=== PATIENT | male | born 1960 | race American Indian/Alaskan Native ===

== ENCOUNTER 2018-06-13 06:45 | Day surgery (SDC) | payer OTHER ==
[~2018-06-13 06:45] MED LIST: ANCEF/STERILE WATER 2 GM/20 ML IV NR
[2018-06-13] MEDS ORDERED: NACL BACTERIOSTATIC INFILTRATI ONE (07:57)
[2018-06-13 08:27] LABS: Hematocrit 41.6 % (35.5-45.6); Hemoglobin 13.8 gm/dl (11.8-15.2); Mean Corpuscular HGB Conc 33 % (32-34); Mean Corpuscular Volume 83 fl (84-94); Platelet Count 164 K/mm3 (140-440); Red Cell Distribution Width 15.7 % (13.2-15.2)
[2018-06-13 08:41] LABS: Albumin 3.5 g/dL (3.9-5); BUN/Creatinine Ratio 17; Blood Urea Nitrogen 15 mg/dL (9-20); Calcium 8.5 mg/dL (8.4-10.2); Hemolysis Index 248
--- NOTE | 2018-06-13 08:52 | Anesthesia Day of Surgery ---
Anesthesia Day of Surgery - Day of Surgery Patient Examined: Yes Patient H&P Reviewed: Yes Patient is NPO: Yes
[2018-06-13] MEDS ORDERED: ZOFRAN IV PRN (08:53)
[2018-06-13] MEDS ORDERED: DILAUDID IV PRN (08:53)
--- NOTE | 2018-06-13 08:53 | Anesthesia Consultation ---
Anesthesia Consult and Med Hx Date of service: 06/13/18 - Airway Anesthetic Teeth Evaluation: Good ROM Head & Neck: Adequate Mental/Hyoid Distance: Adequate Mallampati Class: Class II Intubation Access Assessment: Probably Good - Pulmonary Exam CTA: Yes - Cardiac Exam Cardiac Exam: RRR - Pre-Operative Health Status ASA Pre-Surgery Classification: ASA3 Proposed Anesthetic Plan: General (lymphoma s/p chemo, Denies GERD) - Pulmonary Hx Smoking: No Hx Asthma: No SOB: Yes (SOB- RESOLVED) COPD: No Hx Pneumonia: Yes (2017- RESOLVED) Hx Sleep Apnea: No ([place] PRE SCREEN LOW RISK) - Cardiovascular System Hx Hypertension: No - Endocrine Hx End Stage Renal Disease: No - Hematic Hx Anemia: Yes (WITH CHEMO) - Other Systems Hx Cancer: Yes (2017-[place]MPH[place] - STILL RECEIVING MONTHLY CHEMO)
[2018-06-13] MEDS ORDERED: LACTATED RINGERS 1,000 ML IV SCH (09:00)
[2018-06-13] MEDS ORDERED: NACL 0.9% 1000 ML 1,000 ML IV SCH (09:00)
[2018-06-13] MEDS ORDERED: VERSED IV NR (09:00)
[2018-06-13 09:19] LABS: Alanine Aminotransferase 21 units/L (7-56)
[2018-06-13] MEDS ORDERED: SUBLIMAZE ONE (09:32)
[2018-06-13] MEDS ORDERED: DIPRIVAN 10 MG/ML IV ONE (09:32)
[2018-06-13] MEDS ORDERED: MARCAINE 0.25% INFILTRATI ONE ×2 (10:22→10:38)
[2018-06-13 10:29] LABS: Platelet Estimate Cons; RBC Morphology Normal; Total Cells Counted 100
[2018-06-13] MEDS ORDERED: NACL 0.9% IR ONE (10:38)
[2018-06-13] MEDS ORDERED: QUELICIN ONE (10:56)
[2018-06-13] MEDS ORDERED: XYLOCAINE MPF 2% ONE (10:56)
[2018-06-13] MEDS ORDERED: ZOFRAN ONE (10:57)
[2018-06-13] MEDS ORDERED: BLOXIVERZ ONE (10:57)
[2018-06-13] MEDS ORDERED: ZEMURON IV ONE (10:57)
[2018-06-13] MEDS ORDERED: NEO SYNEPHRINE/NS Syringe(OR USE) IV ONE (10:57)
[2018-06-13] MEDS ORDERED: ROBINUL ONE ×2 (10:57)
--- NOTE | 2018-06-13 10:59 | Short Stay Summary ---
Short Stay Documentation Date of service: 06/13/18 - Allergies and Medications Current Medications: Allergies No Known Allergies Allergy (Verified 06/06/18 17:46) Home Medications Medication Instructions Recorded Confirmed Last Taken Type Aspirin [Aspir-Low] 81 mg PO DAILY 06/06/18 06/13/18 06/06/18 History Active Medications Cefazolin Sodium (Ancef/Sterile Water 2 Gm/20 Ml) 2 gm IV PREOP NR Stop: 06/13/18 23:00 Hydromorphone HCl (Dilaudid) 0.5 mg IV Q10MIN PRN PRN Reason: Pain , Severe (7-10) Stop: 06/13/18 22:00 Lactated Ringer's (Lactated Ringers) 1,000 mls @ 75 mls/hr IV DIRECT YU Last Admin: 06/13/18 08:46 Dose: 75 mls/hr Sodium Chloride (Nacl 0.9% 1000 Ml) 1,000 mls @ 100 mls/hr IV DIRECT YU Midazolam HCl (Versed) 2 mg IV PREOP NR Stop: 06/13/18 23:59 Last Admin: 06/13/18 09:25 Dose: 2 mg Ondansetron HCl (Zofran) 4 mg IV ONCE PRN PRN Reason: Nausea And Vomiting Stop: 06/13/18 15:00 - Brief post op/procedure progress note Date of procedure: 06/13/18 Pre-op diagnosis: scrotal mass Post-op diagnosis: same Procedure: excision of left scrotal mass Anesthesia: ELIESERA Surgeon: BASHIR CORRAL Estimated blood loss: minimal Pathology: list (frozen section - inclusion cyst (Dr. Sandhu)) Specimen disposition: to lab Condition: stable - Hospital course Hospital course: bactrim & norco on chart - Disposition Condition at discharge: Stable Disposition: DC-01 TO HOME OR SELFCARE Short Stay Discharge Plan Follow up with: PRIMARY CARE,MD [Primary Care Provider] - 7 Days
--- NOTE | 2018-06-13 13:16 | Operative Report ---
PREOPERATIVE DIAGNOSIS: Left scrotal mass. POSTOPERATIVE DIAGNOSES: Left scrotal mass. PROCEDURE: Left excision of scrotal mass with frozen section. SURGEON: Kofi Vela MD ANESTHESIA: General. ESTIMATED BLOOD LOSS: Minimal. FLUIDS: Crystalloid. COMPLICATIONS: No complications. INDICATIONS: This patient is a 58-year-old gentleman presented to the office for evaluation of a left scrotal mass. The patient's primary care physician is Dr. Erlinda Moore. The patient has been seen by [facility] in [place], [place] for B-cell lymphoma. He has been treated with chemotherapy. Recently, he was found to have this scrotal mass over the last several months of unknown etiology, appeared to be attached to the testicle on repeat ultrasound. Examination was slightly tender. The patient was slightly uncomfortable and therefore not a good exam could be performed. Discussed options. The patient agreed to proceed with inguinal exploration, possible orchiectomy, possible excision of his mass. Risks, benefits, and complications were explained. DESCRIPTION OF PROCEDURE: The patient was taken to the operative suite, placed in a supine position. After adequate general anesthesia, the scrotum was prepped and draped in a sterile fashion. Examination under anesthesia the mass still appeared to be attached to the testicle. I made a left inguinal incision down to the external oblique fascia. I was able to manipulate the testicle up to the inguinal ring. At that point, it became clear that this was not attached to the testicle. At that point did a scrotal incision right over the mass and excised it. It was sent for frozen section. I was now able to examine the testicle. The tunica vaginalis was not violated. The testicle appeared to be normal as well as the epididymis. Frozen section from Dr. Duarte came back inclusion cyst. Adequate hemostasis was achieved. The dartos layer was then closed in the scrotal incision using 2-0 Vicryl in a running fashion. Skin was closed with 3-0 Vicryl in interrupted fashion. The Yolis's fascia was closed and the inguinal incision with 2-0 Vicryl in a running fashion and mary jo on the skin. The patient tolerated the procedure well. We are dressing and scrotal support was placed. He was extubated and taken to recovery room. He will go home on [employer]. [facility]# [id number] THOMAS/DAGMAR
[2018-06-13 16:39] VITALS: BP 113/73
== END 2018-06-13 12:47 | disposition home or self-care (01) ==
LOC: OR 06:45
PROVIDERS: ATTEND Urology
DX: L72.0 Epidermal cyst (principal); N50.89 Other specified disorders of the male genital organs; J18.9 Pneumonia, unspecified organism; M19.90 Unspecified osteoarthritis, unspecified site; C85.90 Non-Hodgkin lymphoma, unspecified, unspecified site; Z85.118 Personal history of other malignant neoplasm of bronchus and lung; Z79.82 Long term (current) use of aspirin; Z79.899 Other long term (current) drug therapy; Z86.2 Personal history of diseases of the blood and blood-forming organs and certain disorders involving the immune mechanism; Z82.49 Family history of ischemic heart disease and other diseases of the circulatory system; Z98.890 Other specified postprocedural states
CPT/HCPCS: 11423; 36415; 80053; 85007; 85025; 88305; 88331; J0330; J0690; J2250; J2370; J2405; J2704; J2710; J3010; J7120; 88309

== ENCOUNTER 2020-06-14 19:29 | Emergency (ER) | payer BC, OTHER ==
--- NOTE | 2020-06-14 20:17 | Cat Scan Report ---
CT BRAIN: 06/14/2020 INDICATION / CLINICAL INFORMATION: Stroke symptoms. Left-sided weakness COMPARISON: None available. FINDINGS: BRAIN/INTRACRANIAL STRUCTURES: Unenhanced CT images of the brain demonstrate no evidence of acute int racranial abnormality. Ventricles and sulci are normal in size and shape. There is no CT evidence of acute ischemic injury, hemorrhage, or mass. There are no abnormal extra-ax ial fluid collections. EXTRACRANIAL STRUCTURES: Unremarkable. IMPRESSION: No acute abnormality. Notification: Dr. Joaquin in the emergency department at [address] scans at this location are performed using dose reduction to ALARA by means of automated expos ure control. Signer Name: Benny Aaron MD Signed: 06/14/2020 8:13 PM Workstation Name: [id number]
[2020-06-14] MEDS ORDERED: SUCCINYLCHOLINE CHLORIDE 200 MG/10 ML INJ MDV ONE (20:31)
[2020-06-14] MEDS ORDERED: ETOMIDATE 20 MG/10 ML INJ IV ONE (20:31)
[2020-06-14] MEDS ORDERED: SODIUM CHLORIDE 0.9% 1000 ML 1,000 ML ONE (20:32)
[2020-06-14] MEDS ORDERED: SODIUM CHLORIDE 0.9% 500 ML 500 ML IV ONE (20:41)
[2020-06-14] MEDS ORDERED: ACETAMINOPHEN 650 MG RECT SUPP PR ONE (20:42)
[2020-06-14] MEDS ORDERED: MINERAL OIL/PETROLATUM, WHITE OPHTH OINT 3.5 GM OU PRN (20:44)
[2020-06-14] MEDS ORDERED: LIP THERAPY VASELINE TP PRN (20:44)
[2020-06-14 21:00] LABS: Hemoglobin 7.3 gm/dl (11.8-15.2); Mean Corpuscular HGB Conc 33 % (32-34); Mean Corpuscular Volume 83 fl (84-94); Red Blood Count 2.64 M/mm3 (3.65-5.03)
[2020-06-14] MEDS ORDERED: MIDAZOLAM 100 MG in SODIUM CHLORIDE 0.9% 80 ML IV SCH (21:00)
--- NOTE | 2020-06-14 21:01 | Emergency Department Report ---
HPI - General Chief Complaint: Neuro Symptoms/Deficit Time Seen by Provider: 06/14/20 19:35 - HPI HPI: This is a 60-year-old -Irish male presents to the emergency department via EMS from home after the patient was found unresponsive about 30 minutes prior to arrival. The patient has a history of lymphoma and apparently underwent some type of stem cell therapy today. The patient was found by EMS to be unresponsive with a left-sided gaze preference and a code stroke was called. Patient is a poor historian secondary to his current medical condition. I spoke to the patient's , Sherlyn, he says that the patient had a stem cell transplant done earlier today at [facility] through the blood and marrow transplant group. The patient was also admitted there as a short stay about 1 week ago for some type of treatment or transfusion. ED Past Medical Hx - Past Medical History Hx Hypertension: No Hx Congestive Heart Failure: No Hx Diabetes: No Hx Pulmonary Embolism: Yes Hx Arthritis: Yes Hx Asthma: No Hx COPD: No Hx HIV: No Additional medical history: No prior diagnosis of cardiovascular disease. No prior diagnosis of malignancy. - Social History Smoking Status: Never Smoker - Medications Home Medications: Home Medications Medication Instructions Recorded Confirmed Last Taken Type Aspirin [Aspir-Low] 81 mg PO DAILY 06/06/18 06/13/18 06/06/18 History ED Review of Systems ROS: Stated complaint: POSSIBLE STROKE Other details as noted in HPI Physical Exam - Physical Exam Physical Exam: GENERAL: Patient is ill-appearing and unresponsive. HENT: Normocephalic. Atraumatic. Patient has moist mucous membranes. EYES: Pupils equal reactive to light bilaterally. Patient has a right-sided gaze preference. NECK: Supple. Trachea is midline. CHEST/LUNGS: Coarse breath sounds. Patient has shallow respirations with bradypnea. There is respiratory distress noted. HEART/CARDIOVASCULAR: Regular. There is no tachycardia. ABDOMEN: Abdomen is soft. Patient has normal bowel sounds. SKIN: Skin is warm and dry. NEURO: Patient's eyes are open but otherwise he is nonverbal and nonresponsive. He does not follow any commands. MUSCULOSKELETAL: There is no obvious deformity. ED Course - Reevaluation(s) Reevaluation #1: 06/15/20 01:31 Lab Results 06/14/20 06/14/20 06/14/20 Range/Units 20:18 20:18 20:18 WBC 0.1 L* (4.5-11.0) K/mm3 RBC 2.64 L (3.65-5.03) M/mm3 Hgb 7.3 L (11.8-15.2) gm/dl Hct 22.0 L (35.5-45.6) % MCV 83 L (84-94) fl MCH 28 (28-32) pg MCHC 33 (32-34) % RDW 20.0 H (13.2-15.2) % Plt Count 16 L* (140-440) K/mm3 Lymph % (Auto) [employer] Bremer % (Auto) [employer] Add Manual Diff Complete Total Counted 14 Seg Neutrophils % [employer] Seg Neuts % (Manual) 0 L (40.0-70.0) % Band Neutrophils % 0 % Lymphocytes % (Manual) 78.6 H (13.4-35.0) % Reactive Lymphs % (Man) 0 % Monocytes % (Manual) 21.4 H (0.0-7.3) % Eosinophils % (Manual) 0 (0.0-4.3) % Basophils % (Manual) 0 (0.0-1.8) % Metamyelocytes % 0 % Myelocytes % 0 % Promyelocytes % 0 % Blast Cells % 0 % Nucleated RBC % 7.1 H (0.0-0.9) % Seg Neutrophils # Man 0.0 L (1.8-7.7) K/mm3 Band Neutrophils # 0.0 K/mm3 Lymphocytes # (Manual) 0.1 L (1.2-5.4) K/mm3 Abs React Lymphs (Man) 0.0 K/mm3 Monocytes # (Manual) 0.0 (0.0-0.8) K/mm3 Eosinophils # (Manual) 0.0 (0.0-0.4) K/mm3 Basophils # (Manual) 0.0 (0.0-0.1) K/mm3 Metamyelocytes # 0.0 K/mm3 Myelocytes # 0.0 K/mm3 Promyelocytes # 0.0 K/mm3 Blast Cells # 0.0 K/mm3 WBC Morphology Not Reportable Hypersegmented Neuts Not Reportable Hyposegmented Neuts Not Reportable Hypogranular Neuts Not Reportable Smudge Cells Not Reportable Toxic Granulation Not Reportable Toxic Vacuolation Not Reportable Dohle Bodies Not Reportable Pelger-Huet Anomaly Not Reportable Phoebe Rods Not Reportable Platelet Estimate Consistent w auto Clumped Platelets Not Reportable Plt Clumps, EDTA Not Reportable Large Platelets Not Reportable Giant Platelets Not Reportable Platelet Satelliting Not Reportable Plt Morphology Comment Not Reportable RBC Morphology Not Reportable Dimorphic RBCs Not Reportable Polychromasia Not Reportable Hypochromasia Not Reportable Poikilocytosis Not Reportable Anisocytosis Not Reportable Microcytosis Not Reportable Macrocytosis Not Reportable Spherocytes Not Reportable Pappenheimer Bodies Not Reportable Sickle Cells Not Reportable Target Cells Not Reportable Tear Drop Cells Rare Ovalocytes Rare Helmet Cells Not Reportable Tran-[place]ecaton[place] Bodies Not Reportable Leedey Rings Not Reportable Nidia Cells Not Reportable Bite Cells Not Reportable Crenated Cell Not Reportable Elliptocytes Not Reportable Acanthocytes (Spur) Not Reportable Rouleaux Not Reportable Hemoglobin C Crystals Not Reportable Schistocytes Not Reportable Malaria parasites Not Reportable Shakeel Bodies Not Reportable Hem Pathologist Commnt No PT 15.9 H (12.2-14.9) Sec. INR 1.24 H (0.87-1.13) APTT 25.5 (24.2-36.6) Sec. Thrombin Time 13.2 L (15.1-19.6) Sec. Sodium 134 L (137-145) mmol/L Potassium 3.6 (3.6-5.0) mmol/L Chloride 101.1 (98-107) mmol/L Carbon Dioxide 20 L (22-30) mmol/L Anion Gap 17 mmol/L BUN 16 (9-20) mg/dL Creatinine 1.1 (0.8-1.3) mg/dL Estimated GFR > 60 ml/min BUN/Creatinine Ratio 15 % Glucose 131 H (75-100) mg/dL POC Glucose (70-105) Lactic Acid (0.7-2.0) mmol/L Calcium 6.7 L (8.4-10.2) mg/dL Total Bilirubin 0.20 (0.1-1.2) mg/dL AST 28 (5-40) units/L ALT 12 (7-56) units/L Alkaline Phosphatase 53 (35-129) units/L Total Creatine Kinase 307 H (55-170) units/L CK-MB (CK-2) 1.5 (0.0-4.0) ng/mL CK-MB (CK-2) Rel Index 0.4 (0-4) Troponin T < 0.010 (0.00-0.029) ng/mL Total Protein 3.3 L (6.3-8.2) g/dL Albumin 1.6 L (3.9-5) g/dL Albumin/Globulin Ratio 0.9 % TSH (0.270-4.200) mlU/mL Urine Color (Yellow) Urine Turbidity (Clear) Urine pH (5.0-7.0) Ur Specific Strat[place] (1.003-1.030) Urine Protein (Negative) mg/dL Urine Glucose (UA) (Negative) mg/dL Urine Ketones (Negative) mg/dL Urine Blood (Negative) Urine Nitrite (Negative) Urine Bilirubin (Negative) Urine Urobilinogen (<2.0) mg/dL Ur Leukocyte Esterase (Negative) Urine WBC (Auto) (0.0-6.0) /HPF Urine RBC (Auto) (0.0-6.0) /HPF U Epithel Cells (Auto) (0-13.0) /HPF Urine Opiates Screen Urine Methadone Screen Ur Barbiturates Screen Ur Phencyclidine Scrn Ur Amphetamines Screen U Benzodiazepines Scrn Urine Cocaine Screen U Marijuana (THC) Screen Drugs of Abuse Note Plasma/Serum Alcohol (0-0.07) % 06/14/20 06/14/20 06/14/20 Range/Units 20:18 20:18 20:49 WBC (4.5-11.0) K/mm3 RBC (3.65-5.03) M/mm3 Hgb (11.8-15.2) gm/dl Hct (35.5-45.6) % MCV (84-94) fl MCH (28-32) pg MCHC (32-34) % RDW (13.2-15.2) % Plt Count (140-440) K/mm3 Lymph % (Auto) Bremer % (Auto) Add Manual Diff Total Counted Seg Neutrophils % Seg Neuts % (Manual) (40.0-70.0) % Band Neutrophils % % Lymphocytes % (Manual) (13.4-35.0) % Reactive Lymphs % (Man) % Monocytes % (Manual) (0.0-7.3) % Eosinophils % (Manual) (0.0-4.3) % Basophils % (Manual) (0.0-1.8) % Metamyelocytes % % Myelocytes % % Promyelocytes % % Blast Cells % % Nucleated RBC % (0.0-0.9) % Seg Neutrophils # Man (1.8-7.7) K/mm3 Band Neutrophils # K/mm3 Lymphocytes # (Manual) (1.2-5.4) K/mm3 Abs React Lymphs (Man) K/mm3 Monocytes # (Manual) (0.0-0.8) K/mm3 Eosinophils # (Manual) (0.0-0.4) K/mm3 Basophils # (Manual) (0.0-0.1) K/mm3 Metamyelocytes # K/mm3 Myelocytes # K/mm3 Promyelocytes # K/mm3 Blast Cells # K/mm3 WBC Morphology Hypersegmented Neuts Hyposegmented Neuts Hypogranular Neuts Smudge Cells Toxic Granulation Toxic Vacuolation Dohle Bodies Pelger-Huet Anomaly Phoebe Rods Platelet Estimate Clumped Platelets Plt Clumps, EDTA Large Platelets Giant Platelets Platelet Satelliting Plt Morphology Comment RBC Morphology Dimorphic RBCs Polychromasia Hypochromasia Poikilocytosis Anisocytosis Microcytosis Macrocytosis Spherocytes Pappenheimer Bodies Sickle Cells Target Cells Tear Drop Cells Ovalocytes Helmet Cells Tran-Pecatonica Bodies Leedey Rings Nidia Cells Bite Cells Crenated Cell Elliptocytes Acanthocytes (Spur) Rouleaux Hemoglobin C Crystals Schistocytes Malaria parasites Shakeel Bodies Hem Pathologist Commnt PT (12.2-14.9) Sec. INR (0.87-1.13) APTT (24.2-36.6) Sec. Thrombin Time (15.1-19.6) Sec. Sodium (137-145) mmol/L Potassium (3.6-5.0) mmol/L Chloride (98-107) mmol/L Carbon Dioxide (22-30) mmol/L Anion Gap mmol/L BUN (9-20) mg/dL Creatinine (0.8-1.3) mg/dL Estimated GFR ml/min BUN/Creatinine Ratio % Glucose (75-100) mg/dL POC Glucose 162 H (70-105) Lactic Acid (0.7-2.0) mmol/L Calcium (8.4-10.2) mg/dL Total Bilirubin (0.1-1.2) mg/dL AST (5-40) units/L ALT (7-56) units/L Alkaline Phosphatase (35-129) units/L Total Creatine Kinase (55-170) units/L CK-MB (CK-2) (0.0-4.0) ng/mL CK-MB (CK-2) Rel Index (0-4) Troponin T (0.00-0.029) ng/mL Total Protein (6.3-8.2) g/dL Albumin (3.9-5) g/dL Albumin/Globulin Ratio % TSH 1.270 (0.270-4.200) mlU/mL Urine Color (Yellow) Urine Turbidity (Clear) Urine pH (5.0-7.0) Ur Specific Stratton (1.003-1.030) Urine Protein (Negative) mg/dL Urine Glucose (UA) (Negative) mg/dL Urine Ketones (Negative) mg/dL Urine Blood (Negative) Urine Nitrite (Negative) Urine Bilirubin (Negative) Urine Urobilinogen (<2.0) mg/dL Ur Leukocyte Esterase (Negative) Urine WBC (Auto) (0.0-6.0) /HPF Urine RBC (Auto) (0.0-6.0) /HPF U Epithel Cells (Auto) (0-13.0) /HPF Urine Opiates Screen Urine Methadone Screen Ur Barbiturates Screen Ur Phencyclidine Scrn Ur Amphetamines Screen U Benzodiazepines Scrn Urine Cocaine Screen U Marijuana (THC) Screen Drugs of Abuse Note Plasma/Serum Alcohol < 0.01 (0-0.07) % 06/14/20 06/14/20 06/14/20 Range/Units 21:08 21:15 21:15 WBC (4.5-11.0) K/mm3 RBC (3.65-5.03) M/mm3 Hgb (11.8-15.2) gm/dl Hct (35.5-45.6) % MCV (84-94) fl MCH (28-32) pg MCHC (32-34) % RDW (13.2-15.2) % Plt Count (140-440) K/mm3 Lymph % (Auto) Bremer % (Auto) Add Manual Diff Total Counted Seg Neutrophils % Seg Neuts % (Manual) (40.0-70.0) % Band Neutrophils % % Lymphocytes % (Manual) (13.4-35.0) % Reactive Lymphs % (Man) % Monocytes % (Manual) (0.0-7.3) % Eosinophils % (Manual) (0.0-4.3) % Basophils % (Manual) (0.0-1.8) % Metamyelocytes % % Myelocytes % % Promyelocytes % % Blast Cells % % Nucleated RBC % (0.0-0.9) % Seg Neutrophils # Man (1.8-7.7) K/mm3 Band Neutrophils # K/mm3 Lymphocytes # (Manual) (1.2-5.4) K/mm3 Abs React Lymphs (Man) K/mm3 Monocytes # (Manual) (0.0-0.8) K/mm3 Eosinophils # (Manual) (0.0-0.4) K/mm3 Basophils # (Manual) (0.0-0.1) K/mm3 Metamyelocytes # K/mm3 Myelocytes # K/mm3 Promyelocytes # K/mm3 Blast Cells # K/mm3 WBC Morphology Hypersegmented Neuts Hyposegmented Neuts Hypogranular Neuts Smudge Cells Toxic Granulation Toxic Vacuolation Dohle Bodies Pelger-Huet Anomaly Phoebe Rods Platelet Estimate Clumped Platelets Plt Clumps, EDTA Large Platelets Giant Platelets Platelet Satelliting Plt Morphology Comment RBC Morphology Dimorphic RBCs Polychromasia Hypochromasia Poikilocytosis Anisocytosis Microcytosis Macrocytosis Spherocytes Pappenheimer Bodies Sickle Cells Target Cells Tear Drop Cells Ovalocytes Helmet Cells Tran-Pecatonica Bodies Leedey Rings Nidia Cells Bite Cells Crenated Cell Elliptocytes Acanthocytes (Spur) Rouleaux Hemoglobin C Crystals Schistocytes Malaria parasites Shakeel Bodies Hem Pathologist Commnt PT (12.2-14.9) Sec. INR (0.87-1.13) APTT (24.2-36.6) Sec. Thrombin Time (15.1-19.6) Sec. Sodium (137-145) mmol/L Potassium (3.6-5.0) mmol/L Chloride (98-107) mmol/L Carbon Dioxide (22-30) mmol/L Anion Gap mmol/L BUN (9-20) mg/dL Creatinine (0.8-1.3) mg/dL Estimated GFR ml/min BUN/Creatinine Ratio % Glucose (75-100) mg/dL POC Glucose (70-105) Lactic Acid 5.20 H* (0.7-2.0) mmol/L Calcium (8.4-10.2) mg/dL Total Bilirubin (0.1-1.2) mg/dL AST (5-40) units/L ALT (7-56) units/L Alkaline Phosphatase (35-129) units/L Total Creatine Kinase (55-170) units/L CK-MB (CK-2) (0.0-4.0) ng/mL CK-MB (CK-2) Rel Index (0-4) Troponin T (0.00-0.029) ng/mL Total Protein (6.3-8.2) g/dL Albumin (3.9-5) g/dL Albumin/Globulin Ratio % TSH (0.270-4.200) mlU/mL Urine Color Straw (Yellow) Urine Turbidity Clear (Clear) Urine pH 7.0 (5.0-7.0) Ur Specific Stratton 1.011 (1.003-1.030) Urine Protein <15 mg/dl (Negative) mg/dL Urine Glucose (UA) Neg (Negative) mg/dL Urine Ketones Neg (Negative) mg/dL Urine Blood Mod (Negative) Urine Nitrite Neg (Negative) Urine Bilirubin Neg (Negative) Urine Urobilinogen < 2.0 (<2.0) mg/dL Ur Leukocyte Esterase Neg (Negative) Urine WBC (Auto) 1.0 (0.0-6.0) /HPF Urine RBC (Auto) 2.0 (0.0-6.0) /HPF U Epithel Cells (Auto) < 1.0 (0-13.0) /HPF Urine Opiates Screen Negative Urine Methadone Screen Negative Ur Barbiturates Screen Negative Ur Phencyclidine Scrn Negative Ur Amphetamines Screen Negative U Benzodiazepines Scrn Negative Urine Cocaine Screen Negative U Marijuana (THC) Screen Negative Drugs of Abuse Note Disclamer Plasma/Serum Alcohol (0-0.07) % Reevaluation #2: 06/15/20 01:32 Vital Signs 06/14/20 20:40 Pulse Rate 119 H Blood Pressure 119/71 O2 Sat by Pulse 100 Oximetry - Consultations Consultation #1: 10/16/20 22:39 Patient was seen by the telemedicine neurologist, Dr. Duvall, shortly after arrival to the emergency department. The neurologist saw the patient while at CT imaging and ordered a CT angiography of the head and neck to be completed. He later called and spoke with me regarding his examination and says that the patient was not a TPA candidate. He recommended admission to the hospital for further stroke work-up. 06/14/20 22:41 - Central Line Placement Right Femoral Consent Obtained: emergent situation MD Prep: mask, gloves Central Line Prep: Chlorhexidine scrub Ultrasound Used for Placement: Yes Central Line Lumen Inserted: triple Central Line Position: all ports aspirated, flus, sutured in place with nyl Complications: none Additional Comments: The central line placement was initiated during the patient's brief return of spontaneous circulation during CPR/ACLS. That was completed while the patient received ACLS protocol but the patient ultimately . - Intubation Time Out Performed: Yes Sedative: Etomidate Mg Given: 20 Paralytic: Succinylcholine Mg Given: 80 Laryngoscope: other ([place] scope) Size: 4 ET Tube Size: 7.5 Tube Secured Depth (cm): 24 Tube Secured Location: lips Tube Placement Confirmation: visualized tube passing t, equal breath sounds bilat, confirmation by capnometr Patient Tolerated Procedure: well Intubation Complications: none ED Medical Decision Making - Lab Data Result diagrams: 06/14/20 20:18 06/14/20 20:18 - EKG Data -: EKG Interpreted by Me EKG shows normal: sinus rhythm, axis, intervals, QRS complexes, ST-T waves Rate: normal - EKG Data When compared to previous EKG there are: previous EKG unavailable Interpretation: normal EKG - Radiology Data Radiology results: report reviewed, image reviewed interpreted by me: Chest x-ray does not show any acute process. There are no pleural effusions, obvious pneumonia and there is no pneumothorax. No significant cardiomegaly. Endotracheal tube appears in appropriate position. CT BRAIN: 06/14/2020 INDICATION / CLINICAL INFORMATION: Stroke symptoms. Left- sided weakness COMPARISON: None available. FINDINGS: BRAIN/INTRACRANIAL STRUCTURES: Unenhanced CT images of the brain demonstrate no evidence of acute intracranial abnormality. Ventricles and sulci are normal in size and shape. There is no CT evidence of acute ischemic injury, hemorrhage, or mass. There are no abnormal extra-axial fluid collections. EXTRACRANIAL STRUCTURES: Unremarkable. IMPRESSION: No acute abnormality CTA HEAD AND NECK WITH CONTRAST HISTORY: Left-sided weakness COMPARISON: None. TECHNIQUE: All CT scans at this location are performed using CT dose reduction for ALARA by means of automated exposure control.. 3-D/MIP reformats postprocessed. Percentage stenosis is determined by direct quantitative measurements of diseased internal carotid artery diameter compared with normal distal internal carotid artery reference segments or by criteria similar to NASCET where applicable. CONTRAST: 100 ml of Isovue 370 FINDINGS: CTA HEAD: All of the intracranial vessels are fairly poorly visualized. There is a relative paucity of visualization of arterial opacification in the distribution of the right middle cerebral artery, which may be an indication of proximal MCA occlusion or high-grade stenosis. The poor visualization of intracranial vessels may be artifact, although may be due diffuse intracranial vasospasm were prominent diffuse atherosclerotic change. Dural venous sinuses:Not optimally opacified. No significant abnormality. Additional findings: None. IMPRESSION: 1. Relatively poor visualization of intracranial vasculature. This is of uncertain etiology, although may be some artifactual. Paucity of visualization of branches of the right middle cerebral artery. CTA NECK WITH CONTRAST 06/14/2020 INDICATION / CLINICAL INFORMATION: stroke. COMPARISON: None. TECHNIQUE: Routine CTA of the neck is performed. 3-D/MIP reformats were postprocessed. Percentage stenosis is determined by direct quantitative measurements of diseased internal carotid artery diameter compared with normal distal internal carotid artery reference segments or by criteria similar to NASCET where applicable. All CT scans at this location are performed using CT dose reduction for ALARA by means of automated exposure control. CONTRAST: 100 ml of Isovue 370 FINDINGS: Carotid bifurcations: Left bifurcation, there is prominent atherosclerotic plaque, associated with irregular luminal contour, and a focal stenosis of greater than 80%. On the right, there is no evidence of significant stenosis or narrowing. Carotid arteries: No significant abnormality. Cervical vertebral arteries: No significant abnormality. Aortic arch: No significant abnormality. There is evidence of prominent left apical pleural fluid collection there is evidence of partial left upper lobe collapse/consolidation.. Further evaluation can be performed with dedicated chest imaging is necessary. IMPRESSION: High-grade stenosis at the origin of the left internal carotid artery. - Medical Decision Making This patient arrived to the emergency department as a code stroke. He went immediately back for CT imaging of the head without contrast without stopping in the main emergency department. He was seen by the telemedicine neurologist there who also ordered a CT angiography of the head and neck to be completed. CT head without contrast did not show any bleed, shift, mass, ischemia, or any other acute process. CT angiography of the neck showed 80% left internal carotid occlusion. CT angiography of the head did not show any obvious occlusion or abnormality but it was read as having a paucity of contrast in the right MCA distribution which could be an occlusion versus artifact versus vasospasm. I was talking with the [place] stroke attending regarding the abnormal CT angiography head finding with the patient's condition declined. Shortly after the patient came back from CT imaging, the patient was evaluated by myself and he appeared to have shallow bradypneic respirations and the patient was intubated for airway protection, as per the procedure section. The patient's blood work started resulting and showed significant leukopenia of 0.1, anemia with a hemoglobin of 7.3, a platelet count of 16. Patient had a lactic acidosis and some mild hypocalcemia. Patient began having hypotension. The patient had some IV fluid resuscitation going at 125 cc/h at the time of intubation when the patient's systolic was about a 110. As the blood pressure started going down, the patient was given an IV fluid bolus. The patient was found to have a systolic blood pressure of about 85 so Levophed was started. This did not appear to have much effect at the medications lower dose, so it was turned up to its max infusion level. Despite the IV fluid resuscitation and the vasopressor, the patient's blood pressure continued to drop. At this point I was unable to palpate a pulse so CPR/ACLS was initiated. The patient began receiving high-quality chest compressions, along with bag valve ventilation through the endotracheal tube. Overall the patient had 8 rounds of ACLS with an epinephrine given for each round. He was also given a dose of sodium bicarbonate. For the first 5 rounds the patient was in asystole or PEA. After the fifth round the patient had a very brief return of spontaneou s circulation. However he almost immediately went into V. tach. He was given a 200 J defibrillation followed by 300 mg of amiodarone and we continued compressions and ventilation. On the next pulse check the patient was in PEA. The following 2 rounds the patient was in asystole. Overall we did CPR/ACLS for close to 30 minutes without any sustained return of spontaneous circulation. I took the bedside ultrasound and looked at the patient's heart but there was absolutely no movement or squeeze. Time of called at 10:28 PM. The patient's and son were notified of his expiration. Critical Care Time: Yes Critical care time in (mins) excluding proc time.: 45 Critical care attestation.: If time is entered above; I have spent that time in minutes in the direct care of this critically ill patient, excluding procedure time. Critical care time was spent on this patient's initial evaluation, multiple reevaluations, discussion with the telemedicine neurologist, discussion with the [place] stroke attending, ordering and interpretation of labs and imaging, supervision of ACLS protocol, and discussion with the patient's family. Critical Care Time: 45 minutes ED Disposition Clinical Impression: Lactic acidosis, Thrombocytopenia, Cardiac arrest Lymphoma Qualifiers: Lymphoma type: unspecified type Lymphoma site: unspecified region Qualified Cod e(s): C85.90 - Non-Hodgkin lymphoma, unspecified, unspecified site Acute respiratory failure Qualifiers: Respiratory failure complication: unspecified whether with hypoxia or hypercapnia Qualified Code(s): J96.00 - Acute respiratory failure, unspecified whether with hypoxia or hypercapnia Hypotension Qualifiers: Hypotension type: unspecified hypotension type Qualified Code(s): I95.9 - Hypotension, unspecified Leukopenia Qualifiers: Leukopenia type: unspecified Qualified Code(s): D72.819 - Decreased white blood cell count, unspecified Disposition: DC-20 Is pt being admited?: No Time of Disposition: 01:39
[2020-06-14 21:02] LABS: Creatine Kinase MB 1.5 ng/mL (0.0-4.0)
[2020-06-14 21:03] LABS: Alanine Aminotransferase 12 units/L (7-56); Albumin 1.6 g/dL (3.9-5); BUN/Creatinine Ratio 15; Blood Urea Nitrogen 16 mg/dL (9-20); Calcium 6.7 mg/dL (8.4-10.2); Hemolysis Index 23
[2020-06-14 21:05] LABS: Platelet Count 16 K/mm3 (140-440)
[2020-06-14 21:06] LABS: INR 1.24 (0.87-1.13)
[2020-06-14 21:07] LABS: Partial Thromboplastin Time 25.5 Sec. (24.2-36.6); Thrombin Time 13.2 Sec. (15.1-19.6)
[2020-06-14] MEDS ORDERED: SODIUM CHLORIDE 0.9% 1000 ML 1,000 ML IV ONE (21:12)
--- NOTE | 2020-06-14 21:21 | Cat Scan Report ---
CTA NECK WITH CONTRAST 06/14/2020 INDICATION / CLINICAL INFORMATION: stroke. COMPARISON: None. TECHNIQUE: Routine CTA of the neck is performed. 3-D/MIP reformats were postprocessed. Percentage st enosis is determined by direct quantitative measurements of diseased internal carotid artery diameter compared with normal distal internal carotid artery reference segments or by criteria similar to JEMAL CET where applicable. All CT scans at this location are performed using CT dose reduction for ALARA b y means of automated exposure control. CONTRAST: 100 ml of Isovue 370 FINDINGS: Carotid bifurcations: Left bifurcation, there is prominent atherosclerotic plaque, associated with ir regular luminal contour, and a focal stenosis of greater than 80%. On the right, there is no evidence of significant stenosis or narrowing. Carotid arteries: No significant abnormality. Cervical vertebral arteries: No significant abnormality. Aortic arch: No significant abnormality. There is evidence of prominent left apical pleural fluid collection there is evidence of partial left upper lobe collapse/consolidation.. Further evaluation can be performed with dedicated chest imaging is necessary. IMPRESSION: High-grade stenosis at the origin of the left internal carotid artery. Signer Name: Benny Aaron MD Signed: 06/14/2020 9:17 PM Workstation Name: [id number]
[2020-06-14 21:22] VITALS: BP 119/71
--- NOTE | 2020-06-14 21:24 | XRay Report ---
CHEST 1 VIEW INDICATION: ETT placement COMPARISON: April 2017 FINDINGS: SUPPORT DEVICES: [id number] catheter has tip in superior vena cava. Endotracheal tubes in good pos ition. HEART / MEDIASTINUM: No significant abnormality. LUNGS / PLEURA: No significant pulmonary or pleural abnormality. No pneumothorax. ADDITIONAL FINDINGS: IMPRESSION: 1. No acute cardiopulmonary disease Signer Name: Víctor Barnhart MD Signed: 06/14/2020 9:19 PM Workstation Name: [id number]
--- NOTE | 2020-06-14 21:34 | Cat Scan Report ---
CTA HEAD AND NECK WITH CONTRAST HISTORY: Left-sided weakness COMPARISON: None. TECHNIQUE: All CT scans at this location are performed using CT dose reduction for ALARA by means of automated exposure control.. 3-D/MIP reformats postprocessed. Percentage stenosis is determined by d irect quantitative measurements of diseased internal carotid artery diameter compared with normal dis marina internal carotid artery reference segments or by criteria similar to NASCET where applicable. CONTRAST: 100 ml of Isovue 370 FINDINGS: CTA HEAD: All of the intracranial vessels are fairly poorly visualized. There is a relative paucity of visualiz ation of arterial opacification in the distribution of the right middle cerebral artery, which may be an indication of proximal MCA occlusion or high-grade stenosis. The poor visualization of intracrani al vessels may be artifact, although may be due diffuse intracranial vasospasm were prominent diffuse atherosclerotic change. Dural venous sinuses:Not optimally opacified. No significant abnormality. Additional findings: None. IMPRESSION: 1. Relatively poor visualization of intracranial vasculature. This is of uncertain etiology, although may be some artifactual. Paucity of visualization of branches of the right middle cerebral artery. Signer Name: Benny Aaron MD Signed: 06/14/2020 9:30 PM Workstation Name: [id number]
--- NOTE | 2020-06-14 21:42 | Emergency Department Report ---
HPI - General Chief Complaint: Neuro Symptoms/Deficit PUI?: Yes Time Seen by Provider: 06/14/20 19:35 - HPI HPI: [facility] Date of Service: 06/14/2020 19:38:17 Impression: Rule Out Acute Ischemic Stroke Comments/Sign-Out: The [place] [id number]. The patient is on Xeralto. No TPA. CTA neck shows evidence of left apical pleural fluid collection, evidence of partial left upper lobe collapse/consolidation. Possible artifactual finding of the right MCA region. We will repeat the CTA head and neck to rule out large vessel occlusion. Metrics: Last Known Well: 06/14/2020 18:00:00 [facility] Notification Time: 06/14/2020 19:37:50 Arrival Time: 06/14/2020 19:38:17 Stamp Time: 06/14/2020 19:38:17 Time First Login Attempt: 06/14/2020 19:45:08 Video Start Time: 06/14/2020 19:45:08 Symptoms: cancer for stem cell therapy Patient is not a candidate for Alteplase/Activase. Patient was not deemed candidate for Alteplase/Activase thrombolytics because of Last Well Known Above 4.5 Hours. Our recommendations are outlined below. Recommendations: Activate Stroke Protocol Admission/Order Set Stroke/Telemetry Floor Neuro Checks Bedside Swallow Eval DVT Prophylaxis IV Fluids, Normal Saline Head of Bed 30 Degrees Euglycemia and Avoid Hyperthermia (PRN Acetaminophen) Hold Antithrombotics for Now History of Present Illness: Patient was brought by EMS for symptoms of cancer for stem cell therapy The patient has lymph node cancer 3 pm he came for stem cell therapy, and then at 6:30 he was foudn unresponsive with left sided fixed gaze. He was having issues with hypoventilation. The patient has paucity of the right MCA that is noted, but has a low platelet count. The patient has had beathing problems through the night. But also poor visualization of the right MCA. - The patietn after being intubated. Anticoagulant use: xarelto Examination: BP(119/71), Pulse(119), Blood Glucose(131) 1A: Level of Consciousness - Alert; keenly responsive +3 1B: Ask Month and Age - Both Questions Right + 2 1C: Blink Eyes & Squeeze Hands - Performs Both Tasks + 2 2: Test Horizontal Extraocular Movements - Normal + 0 3: Test Visual [place] - No Visual Loss + 0 4: Test Facial Palsy (Use Grimace if Obtunded) - Normal symmetry + 0 5A: Test Left Arm Motor Drift - No Drift for 10 Seconds + 4 5B: Test Right Arm Motor Drift - No Drift for 10 Seconds + 4 6A: Test Left Leg Motor Drift - No Drift for 5 Seconds + 4 6B: Test Right Leg Motor Drift - No Drift for 5 Seconds + 4 7: Test Limb Ataxia (FNF/Heel-Polk) - No Ataxia + 0 8: Test Sensation - Normal; No sensory loss + 0 9: Test Language/Aphasia - Normal; No aphasia + 0 10: Test Dysarthria - Normal + 0 11: Test Extinction/Inattention - No abnormality + 0 NIHSS Score: 24 Patient/Family was informed the Neurology Consult would happen via TeleHealth consult by way of interactive audio and video telecommunications and consented to receiving care in this manner. Due to the immediate potential for life-threatening deterioration due to underlying acute neurologic illness, I spent 35 minutes providing critical care. This time includes time for face to face visit via telemedicine, review of medical records, imaging studies and discussion of findings with providers, the patient and/or family. Dr Ravi [facility] Case [id number] ED Past Medical Hx - Past Medical History Hx Hypertension: No Hx Congestive Heart Failure: No Hx Diabetes: No Hx Pulmonary Embolism: Yes Hx Arthritis: Yes Hx Asthma: No Hx COPD: No Hx HIV: No Additional medical history: No prior diagnosis of cardiovascular disease. No prior diagnosis of malignancy. - Social History Smoking Status: Never Smoker - Medications Home Medications: Home Medications Medication Instructions Recorded Confirmed Last Taken Type Aspirin [Aspir-Low] 81 mg PO DAILY 06/06/18 06/13/18 06/06/18 History ED Review of Systems ROS: Stated complaint: POSSIBLE STROKE Other details as noted in HPI Physical Exam - Physical Exam Vital Signs: Vital Signs 10/16/20 20:40 Pulse Rate 119 H Blood Pressure 119/71 O2 Sat by Pulse 100 Oximetry ED Course Vital Signs 06/14/20 20:40 Pulse Rate 119 H Blood Pressure 119/71 O2 Sat by Pulse 100 Oximetry ED Medical Decision Making - Lab Data Result diagrams: 06/14/20 20:18 06/14/20 20:18 Critical care attestation.: If time is entered above; I have spent that time in minutes in the direct care of this critically ill patient, excluding procedure time. ED Disposition Clinical Impression: Atelectasis of right lung Disposition: DC-20 Is pt being admited?: No Does the pt Need Aspirin: No () Condition: Critical Referrals: PRIMARY CARE, [Primary Care Provider] - 3-5 Days
[2020-06-14 21:54] LABS: Bilirubin,Urine NEG (Negative); Blood,Urine MOD (Negative); Color,Urine Straw (Yellow); Protein,Urine <15 mg/dL mg/dL (Negative); Urobilinogen,Urine < 2.0 mg/dL (<2.0)
[2020-06-14 21:59] LABS: Basophils % (Manual) 0 % (0.0-1.8); Eosinophils % (Manual) 0 % (0.0-4.3); Monocytes % (Manual) 21.4 % (0.0-7.3); Nucleated Red Blood Cells 7.1 % (0.0-0.9); Total Cells Counted 14
[2020-06-14] MEDS ORDERED: NORepinephrine/NS 4 MG-250 ML 4 MG/250 ML BAG IV SCH (22:00)
[2020-06-14 22:02] LABS: Ovalocytes Rare; Platelet Estimate Consistent w Auto; Tear Drop Cells Rare
[2020-06-14 22:03] LABS: Amphetamine Screen,Urine Negative; Benzodiazepines Screen,Urine Negative; Cannabinoid Screen,Urine Negative; Cocaine Screen,Urine Negative; Methadone Screen,Urine Negative; Opiate Screen,Urine Negative
[2020-06-14] MEDS ORDERED: EPINEPHrine 1 MG/1 ML 8 MG in SODIUM CHLORIDE 0.9% 250ML 242 ML IV ONE (22:17)
[2020-06-15] MEDS ORDERED: SODIUM BICARB 8.4% 50 MEQ/50 ML SYRINGE IV ONE (14:41)
[2020-06-15] MEDS ORDERED: EPINEPHrine 1 MG/10 ML SYRINGE ONE (14:41)
== END 2020-06-14 22:30 ==
LOC: ED 19:29
DX: I46.9 Cardiac arrest, cause unspecified (principal); J96.00 Acute respiratory failure, unspecified whether with hypoxia or hypercapnia; D72.819 Decreased white blood cell count, unspecified; I95.9 Hypotension, unspecified; C85.90 Non-Hodgkin lymphoma, unspecified, unspecified site; E87.2 Acidosis; D69.6 Thrombocytopenia, unspecified; M19.90 Unspecified osteoarthritis, unspecified site; Z79.899 Other long term (current) drug therapy
CPT/HCPCS: 31500; 36415; 36556; 70450; 70496; 70498; 71045; 80053; 80307; 81001; 82140; 82550; 82553; 82962; 84443; 84484; 85007; 85025; 85610; 85670; 85730; 87040; 87086; 92950; 93005; 94002; 96360; 96361; 99291; J0171; J0330; J2250; J7030; J7050; Q9967; 80320; G0480